=== PATIENT | female | born 1995 | race Hispanic/Latino ===

== ENCOUNTER 2019-03-16 20:58 | Emergency (ER) | payer BC, OTHER ==
[2019-03-16] MEDS ORDERED: TETANUS/DIPHTHERIA TOXOID [ADULT] 0.5 ML VIAL IM ONE (21:53)
[2019-03-16] MEDS ORDERED: ACETAMINOPHEN EXTRA STRENGTH 500 MG TABLET ONE (21:53)
== END 2019-03-16 22:58 | disposition home or self-care (01) ==
LOC: EDH 20:58
DX: S81.011A Laceration without foreign body, right knee, initial encounter (principal); W54.0XXA Bitten by dog, initial encounter; Y93.89 Activity, other specified; Y92.89 Other specified places as the place of occurrence of the external cause; Y99.8 Other external cause status
CPT/HCPCS: 12002; 73562; 90471; 90714